=== PATIENT | male | born 1950 | race Caucasian/White ===

== ENCOUNTER 2016-09-18 11:52 | Observation (INO) | payer OTHER, MEDICARE ==
[~2016-09-18] VITALS: Ht 185.4 cm; Wt 91.6 kg
[~2016-09-18 11:52] MED LIST: ASPIRIN EC81 M1 PO; ATORVASTATIN CA20 M1 PO; CARVEDILOL3.125 M1 PO; LEVAQUIN500 M1 PO; MAGNESIUM400 M1 PO; MEDROL4 M2 PO; MELOXICAM15 M1 PO; MOBIC15 MG PO; NASONEX17 GM NASB; ORPHENADRINE C100 MG PO; SOTALOL80 M1 PO; TESSALON PERLE100 M1 PO; TESSALON PERLE100 MG PO; ULTRAM50 M1 PO; VENTOLIN HFA18 GM INH; ZITHROMAX Z-PA250 M1 PO; ZITHROMAX250 M2 PO
--- NOTE | 2016-09-18 12:19 | NUR ---
RECEIVED 66 YO MALE C/O FEELING VERY SWEATY AND DIZZY SINCE LAST NIGHT. PT WAS AT [facility] THIS AM AND HE STARTED PROFUSELY SWEATING. PT ALSO REPORTS SHORTNESS OF BREATH. NO C/O CP.
--- NOTE | 2016-09-18 12:19 | NUR ---
PT REPORTS NEAR SYNCOPE EPISODE AT [facility].
--- NOTE | 2016-09-18 12:22 | ED AMS/SEIZURE/WEAK/DIZZY ---
History of Present Illness General Chief Complaint: Dizziness Stated Complaint: DIZZY, X 1 DAY Source: patient Exam Limitations: no limitations Vital Signs & Intake/Output Vital Signs & Intake/Output Vital Signs Date Time Temp Pulse Resp B/P Pulse O2 O2 Flow FiO2 Ox Delivery Rate 09/19 0927 124/64 09/19 0800 97.5 74 18 124/64 97 Room Air 09/18 2200 98.2 74 16 120/68 98 Room Air 09/18 2125 80 120/68 09/18 1710 97.6 77 20 112/60 96 Room Air ED Intake and Output 09/19 0000 09/18 1200 Intake Total 1060 Output Total Balance 1060 Intake, IV 610 Intake, Oral 450 Number 0 Bowel Movements Patient 202 lb Weight Allergies Coded Allergies: Penicillins (Intermediate, HIVES 04/08/16) codeine (Intermediate, HIVES 04/08/16) Reconcile Medications Aspirin (Ecotrin*) 81 MG TABLET.DR 1 TAB PO DAILY HEART/BLOOD (Reported) Atorvastatin Calcium 20 MG TABLET 1 TAB PO DAILY CHOLESTEROL (Reported) Carvedilol 3.125 MG TABLET 1 TAB PO BID HEART (Reported) Magnesium Oxide (Magnesium) 400 MG CAPSULE 1 CAP PO DAILY SUPPLEMENT ( Reported) Meloxicam 15 MG TABLET 1 TAB PO DAILY PAIN/INFLAMMATION (Reported) Sotalol HCl (Sotalol) 80 MG TABLET 1 TAB PO BID HEART (Reported) Triage Note: RECEIVED 66 YO MALE C/O FEELING VERY SWEATY AND DIZZY SINCE LAST NIGHT. PT WAS AT [facility] THIS AM AND HE STARTED PROFUSELY SWEATING. PT ALSO REPORTS SHORTNESS OF BREATH. NO C/O CP. Triage Nurses Notes Reviewed? yes Onset: Abrupt Duration: hour(s): (1) Timing: single episode today Injury Environment: AT [facility] Severity: severe No Modifying Factors: none Associated Symptoms: DIAPHORESIS, URINARY FREQUENCY HPI: This is a very pleasant 66-year-old gentleman with history of permanent pacemaker placed in 2000 for bradycardia who presents to the ER with his for chief complaint of feeling like he was going to pass out at [facility]. Patient states today while he was at [facility] all of a sudden became very diaphoretic and felt dizzy like he was going to pass out. He asked someone for a place to lie down and felt slightly better. Last night throughout the night he had multiple episodes of severe diaphoresis as well as was urinating very frequently. Denies any chest pain or palpitations. He states that if he did not change his position in [facility] he would've passed out. Last episode of syncope was 2 years ago after which the patient was taken to [facility]. From [place] she was transferred to [place] and had testing done that showed that the lower chambers of his heart or only pumping at 20-25%. He follows up with Dr. Kirby Bellamy electrophysiology. He is currently on sotalol Alyce states that his medications have not changed. He is compliant with his medications. Last interrogation of his pacemaker was in April 2016. Neither any other recent changes. He states he is feeling better than he was at the [facility] earlier. Past History Travel History Traveled to [facility] past 21 day No Medical History Any Pertinent Medical History? 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 No Review of Systems Review of Systems Constitutional: Reports: diaphoresis, weakness. Denies: chills, fever. EENTM: Reports: no symptoms. Respiratory: Denies: cough, short of breath, sputum production. Cardiovascular: Reports: syncope (NEAR SYNCOPE). Denies: chest pain, palpitations, peripheral edema. GI: Reports: no symptoms. Genitourinary: Reports: frequency. Musculoskeletal: Denies: back pain. Skin: Reports: no symptoms. Neurological/Psychological: Reports: no symptoms. Hematologic/Endocrine: Reports: polyuria. Denies: bruising, bleeding, polydipsia. Immunologic/Allergic: Denies: splenectomy. All Other Systems: Reviewed and Negative Physical Exam Physical Exam General Appearance: alert, awake, moderate distress, PALE Head: atraumatic, normal appearance Eyes: Bilateral: normal appearance, PERRL, EOMI. Ears, Nose, Throat: normal pharynx, normal ENT inspection, hearing grossly normal Neck: normal inspection, supple, full range of motion Respiratory: normal breath sounds, chest non-tender, no respiratory distress Cardiovascular: regular rate/rhythm Peripheral Pulses: 2+ radial (R), 2+ radial (L) Gastrointestinal: normal bowel sounds, soft, non-tender Extremities: normal range of motion Neurologic/Psych: no motor/sensory deficits, awake, alert, oriented x 3 Skin: pallor Core Measures ACS in differential dx? Yes ASA ordered for poss ACS? 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 CVA/TIA Diagnosis: No Severe Sepsis Present: No Septic Shock Present: No Progress Differential Diagnosis: arrythmia, anemia, benign positional vertigo, CVA/stroke , dehydration, electrolyte imbalance, UNSTABLE ANGINA Plan of Care: Orders Procedure Date/time Status ECHOCARDIOGRAM 09/19 0700 Active TROPONIN LEVEL 09/19 0000 Complete EKG 09/19 0000 Active House Staff 09/19 UNK Active Heart Healthy Diet 09/18 D Active TROPONIN LEVEL 09/18 1800 Complete EKG 09/18 1800 Active Pathway - chart 09/18 1711 Active Vital Signs 09/18 1657 Active Teach/Educate 09/18 165 Active Pain Treatment and Response 09/18 165 Active Nutritional Intake, Monitor 09/18 165 Active Isolation 09/18 1657 Active Intake & Output 09/18 1657 Active Patient Care Conference 09/18 1657 Active Activity/Ambulation 09/18 1657 Active Patient Data 09/[address] in observation 09/18 1446 Active Vital Signs 09/18 1446 Active Code Status 09/18 1446 Active Intake & Output 09/18 1259 Active GLYCOSYLATED HGB 09/18 1210 Complete D-DIMER 09/18 1210 Complete House Staff 09/18 K Active Lab Add-on Test 09/18 K Active Current Medications Sig/Shi Start time Last Medication Dose Stop Time Status Admin Enoxaparin Sodium 40 MG DAILY 09/18 1711 AC (Lovenox) Laboratory Tests 09/19/16 0100: Troponin I < 0.01 09/18/16 1930: Urine Color YEL, Urine Clarity CLEAR, Urine pH 6.0, Ur Specific [place] 1.025, Urine Protein NEG, Urine Ketones NEG, Urine Nitrite NEG, Urine Bilirubin NEG, Urine Urobilinogen 0.2, Ur Leukocyte Esterase NEG, Ur Microscopic EXAM NOT REQUIRED, Urine Hemoglobin NEG, Urine Glucose NEG 09/18/16 1800: Troponin I < 0.01 EKG, TELE MONITOR, ORTHOSTATICS. LABS, URINALYSIS ORDERED. NEURO INTACT, CURRENTLY ASYMPTOMATIC. 2:04 PM D/W ON-CALL PHYSICIAN COVERING DR BELLAMY. ADVISES TELEMETRY ADMISSION AND PACER INTERROGATION. DR ILENE GA. D/W CASE MANAGEMENT FOR OBSERVATION. (LAMBERTO MORIN,NEAL) Diagnostic Imaging: Viewed by Me: Radiology Read. Discussed w/RAD: Radiology Read. Initial ED EKG: PACED Prior EKG: unchanged Comments: PATIENT: ASYA TELLES PRESENT AGE: 66 PATIENT ACCOUNT NO: [id number] : 50 LOCATION: [facility] ORDERING PHYSICIAN: NEAL ORANTES MD SERVICE DATE: 09/18/16 EXAM TYPE: RAD - XRY-CHEST XRAY, PA AND LATERAL EXAMINATION: XR CHEST CLINICAL INFORMATION: Syncope. Evaluate mediastinum. COMPARISON: Chest done on 03/15/2016. TECHNIQUE: 2 views of the chest were obtained. FINDINGS: The cardiomediastinal silhouette is within normal limits, appears similar to 03/15/2016. Dual-lead pacer wires are present, appear intact, unchanged. Both lung wray are symmetrically expanded and appear clear. There is no pleural effusion present. The visualized upper abdomen is unremarkable. Overall, no significant change since prior study. IMPRESSION: No acute cardiopulmonary disease. No significant change since 03/15/2016. Specifically, the mediastinal contour is well-maintained, unchanged. DICTATED BY: HAYLEY AGUILAR MD DATE/TIME DICTATED:09/18/161341 SCREENER AND BLENDER:VERONICA DATE/TIME TRANSCRIBED:09/18/161341 CONFIDENTIAL, DO NOT COPY WITHOUT APPROPRIATE AUTHORIZATION. <Electronically signed in Other Vendor System> SIGNED BY: HAYLEY AGUILAR MD 09/18/16 1346 Departure Departure Disposition: STILL A PATIENT Condition: Stable Clinical Impression Primary Impression: Near syncope Referrals: CHERELLE ODOM MD (PCP/Family) Departure Forms: Customer Survey General Discharge Information Observation Note Spoke With: CHERELLE ODOM MD Physician Advisor Notified: LIZ MORIN,SILVIA [address] Place Patient In: Non-ED OBS Care Area Rationale for Observation: My rational for observation is as follows [TELE MONITOR, SERIAL EKG/TROPONIN, PACEMAKER INTERROGATION, ECHOCARDIOGRAM, CARDIOLOGY CONSULTATION].
[2016-09-18 12:27] LABS: ABSOLUTE BASOPHIL COUNT 0 /CUMM (0.0-0.2); ABSOLUTE EOSINOPHIL COUNT 0.1 /CUMM (0.0-0.7); ABSOLUTE GRANULOCYTE CT 4.4 /CUMM (1.4-6.5); ABSOLUTE LYMPH COUNT 1.2 /CUMM (1.2-3.4); ABSOLUTE MONOCYTE COUNT 0.4 /CUMM (0.10-0.60); BASOPHIL % 0.5 % (0.0-2.0); EOSINOPHIL % 0.9 % (0-5); GRANULOCYTE % 71.6 % (42.2-75.2); HEMATOCRIT 45.2 % (42-52); MEAN CORPUSCULAR HGB 30.3 PG (27.0-31.0); MEAN CORPUSCULAR HGB CONC 33.7 G/DL (33.0-37.0); MEAN CORPUSCULAR VOLUME 90.1 FL (80.0-94.0); MEAN PLATELET VOLUME 8.3 FL (7.4-10.4); PLATELET COUNT 197 /CUMM (130-400); RBC DISTRIBUTION WIDTH 14.3 % (11.5-14.5); RED BLOOD CELL CT 5.02 /CUMM (4.70-6.10); WHITE BLOOD CELL COUNT 6.2 /CUMM (4.8-10.8)
--- NOTE | 2016-09-18 12:27 | NUR ---
PT BOUGHT DIRECTLY TO ROOM # 6, CONNECTED TO CM AND ENDORSED TO RN
[2016-09-18 12:28] LABS: PT 10.8 SEC (9.4-12.5); PTT 26 SEC (25-37)
--- NOTE | 2016-09-18 12:58 | NUR ---
EXMAINED BY DR. ORANTES, DENIES CHEST PAIN. TO AND FROM XRAY.
--- NOTE | 2016-09-18 13:10 | NUR ---
C/O R SIDED FRONTAL HEADACHE.
--- NOTE | 2016-09-18 13:46 | RADIOLOGY REPORT ---
EXAMINATION: XR CHEST CLINICAL INFORMATION: Syncope. Evaluate mediastinum. COMPARISON: Chest done on 03/15/2016. TECHNIQUE: 2 views of the chest were obtained. FINDINGS: The cardiomediastinal silhouette is within normal limits, appears similar to 03/15/2016. Dual-lead pacer wires are present, appear intact, unchanged. Both lung wray are symmetrically expanded and appear clear. There is no pleural effusion present. The visualized upper abdomen is unremarkable. Overall, no significant change since prior study. IMPRESSION: No acute cardiopulmonary disease. No significant change since 03/15/2016. Specifically, the mediastinal contour is well-maintained, unchanged.
--- NOTE | 2016-09-18 13:57 | NUR ---
IV TYLENOL INFUSING DIRECTED
--- NOTE | 2016-09-18 13:57 | NUR ---
PT RETURNED FROM RADIOLOGY
--- NOTE | 2016-09-18 14:48 | NUR ---
multiple calls placed to md zazueta
--- NOTE | 2016-09-18 15:26 | History & Physical ---
SONIA ENCARNACION MD 09/18/16 1519: General Information and HPI MD Statement: I have seen and personally examined ASYA TELLES and documented this H&P. The patient is a 66 year old M who presented with a patient stated chief complaint of []. 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 According to him, he was relatively alright a day ago. He went for a long ride with his on Monday. He came back on Monday night and slept well. During Monday afternoon. He has an episode of sudden onset of sweating without any associated symptoms with subsided with in couple of minutes. In night again he had this similar episode of sweating when he was trying to go for urination which he recovered after some time. He was having associated shortness of breath at this time. She slept well overnight in the morning he went to [facility] where he found himself very weak, associated with severe sweating, shortness of breath and tendency to fall, but he denies for any fall or trauma. He was aware of her situation. His was there and she told that his skin was pale. After this episode, the came to the [place] ED., This episode lasted for around 15-20 minutes. He denies palpitation, incontinence of stool and urine, blurry vision, confusion, seizure, weakness in any part of the body, tingling and numbness, chest pain, neck pain, trauma, history of diabetes. He was also complaining of headache. He was given Tylenol in the ED. He had permanent pacemaker in 2000 secondary to tachybradycardia syndrome.Its battery was changed in 2009.Last interrogation of his pacemaker was in April 2016. He is currently on sotalol and carvedilol.He is compliant with his medications. 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 He is also complaining of tremors in his both hands. Tremors are more intentional in nature. He is unawair of any family history. 2 weeks ago, he had steroid injection in left hip for the pain. Allergies -penicillin, codeine Allergies/Medications Allergies: Coded Allergies: Penicillins (Intermediate, HIVES 04/08/16) codeine (Intermediate, HIVES 04/08/16) Home Med list Aspirin (Ecotrin*) 81 MG TABLET.DR 1 TAB PO DAILY HEART/BLOOD (Reported) Atorvastatin Calcium 20 MG TABLET 1 TAB PO DAILY CHOLESTEROL (Reported) Carvedilol 3.125 MG TABLET 1 TAB PO BID HEART (Reported) Magnesium Oxide (Magnesium) 400 MG CAPSULE 1 CAP PO DAILY SUPPLEMENT ( Reported) Meloxicam 15 MG TABLET 1 TAB PO DAILY PAIN/INFLAMMATION (Reported) Sotalol HCl (Sotalol) 80 MG TABLET 1 TAB PO BID HEART (Reported) Past History Travel History Traveled to [place] past 21 day No Medical History Neurological: NONE EENT: NONE Cardiovascular: hypertension, hyperlipidemia, PACEMAKER Respiratory: NONE Gastrointestinal: NONE Hepatic: NONE Renal: NONE Musculoskeletal: NONE Psychiatric: NONE Endocrine: NONE Blood Disorders: NONE Cancer(s): NONE [employer] ARCHITECT/Reproductive: NONE Review of Systems Review of Systems Constitutional: Denies: no symptoms. Comments He denies for any active complaints other than episodic perspiration. Exam & Diagnostic Data Last 24 Hrs of Vital Signs/I&O Vital Signs Date Time Temp Pulse Resp B/P Pulse O2 O2 Flow FiO2 Ox Delivery Rate 09/18 2200 98.2 74 16 120/68 98 Room Air 09/18 2125 80 120/68 09/18 1710 97.6 77 20 112/60 96 Room Air 09/18 1356 97.4 09/18 1216 97.4 71 20 106/72 96 Room Air Intake & Output 09/19 0800 09/19 0000 09/18 1600 Intake Total 450 610 Output Total Balance 450 610 Intake, IV 0 610 Intake, Oral 450 Number 0 Bowel Movements Patient 91.626 kg 91.626 kg Weight Physical Exam General Appearance Alert, Oriented X3, Cooperative, No Acute Distress Skin No Rashes, No Breakdown Cardiovascular Normal S1, Normal S2 Lungs Clear to Auscultation, Normal Air Movement Abdomen Soft, No Tenderness Neurological Normal Gait, Normal Speech, Strength at 5/5 X4 Ext, Normal Tone, Sensation Intact, Cranial Nerves 3-12 NL, Reflexes 2+ Extremities No Clubbing, No Cyanosis, No Edema, decreased pulse on the right side of hand Last 24 Hrs of Labs/Alexys: Laboratory Tests 09/18/16 1930: Urine Color YEL, Urine Clarity CLEAR, Urine pH 6.0, Ur Specific [place] 1.025, Urine Protein NEG, Urine Ketones NEG, Urine Nitrite NEG, Urine Bilirubin NEG, Urine Urobilinogen 0.2, Ur Leukocyte Esterase NEG, Ur Microscopic EXAM NOT REQUIRED, Urine Hemoglobin NEG, Urine Glucose NEG 09/18/16 1800: Troponin I < 0.01 09/18/16 1210: Anion Gap 11, Estimated GFR > 60, BUN/Creatinine Ratio 21.0, Glucose 110 H, Hemoglobin A1c Pending, Calcium 9.9, Magnesium 2.1, Total Bilirubin 1.0, AST 35, ALT 58, Alkaline Phosphatase 61, Troponin I < 0.01, [id number]-F-[id number] Pept 289 H, Total Protein 7.3, Albumin 4.0, Globulin 3.3, Albumin/Globulin Ratio 1.2, PT 10.8, INR 1.03, APTT 26, D-Dimer < 200, CBC w Diff NO MAN DIFF REQ, RBC 5.02, MCV 90.1, MCH 30.3, RDW 14.3, MPV 8.3, Gran % 71.6, Lymphocytes % 20.1 L, Monocytes % 6.9, Eosinophils % 0.9, Basophils % 0.5, Absolute Granulocytes 4.4, Absolute Lymphocytes 1.2, Absolute Monocytes 0.4, Absolute Eosinophils 0.1, Absolute Basophils 0, PUBS MCHC 33.7 Diagnostic Data EKG Results Normal sinus rhythm, atrial pacing CXR Results No any acute cardiopulmonary abnormality Assessment/Plan Assessment: Patient is a 66-year-old male with significant past medical history of hypertension, hyperlipidemia, status post pacemaker 2000( due to tachybradycardia syndrome), diverticulosis, internal hemorrhoids, essential tremors, history of fracture of right elbow presented with chief complaints of episode of feeling sweaty and dizzy and shortness of breath. Vital signs at the time of admission -temperature 97.4, pulse 71, respiratory rate 20, blood pressure 106/72, SPO2 96% on room air Orthostatic blood pressure - blood pressure in sitting 130/84, lying 136/76, standing 126/82. CXR no any acute cardiopulmonary abnormality Pertinent labs -troponin <0.01, d-dimer<200, proBNP-289 Plan - Syncope under evaluation - We will admit the patient in telemetry Will do cardiac monitoring We will place cardiology consult and follow the recommendation We will follow-up with echocardiogram We will follow serial troponin and EKG to rule out acute coronary syndrome. We will also interrogate the pacemaker. If it had captured any events. Strict intake output charting We will continue all home medications including sotalol and carvedilol Diet-heart healthy diet DVT prophylaxis-ALP S/heparin CODE STATUS-full code As Ranked By This Provider Problem List: 1. Syncope 2. History of permanent cardiac pacemaker placement 3. Hyperlipidemia 4. Hypertension Core Measures/Miscellaneous Acute Coronary Syndrome ACS Diagnosis: No Cerebrovascular Accident CVA/TIA Diagnosis: No Venous Thromboembolism VTE Risk Factors: Age > 40 No [facility] VTE prophylaxis d/t: No contraindications No VTE Pharm Prophylaxis d/t: No contraindications VTE Diagnosis: No VTE Type: NONE VTE Confirmed by (Test): NONE Severe Sepsis Severe Sepsis Present: No Septic Shock Septic Shock Present: No Miscellaneous Documentation Attending Case Discussed With: CHERELLE ODOM MD Primary Care Physician: CHERELLE ODOM MD Level of Patient Care: Telemetry JANENE AVINA MD 09/18/161937: Past History Surgical History Surgical History: Pacemaker placement Core Measures/Miscellaneous Congestive Heart Failure CHF Diagnosis: No Miscellaneous Documentation Patient sees these Specialists Dr. Hernandez Cardiology Resident Review Statement Resident Statement: examined this patient, discussed with art gallery internship, agreed with art gallery internship Other Findings: Mr. 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 He presented with multiple episodes of near syncope characterized by severe diaphoresis, skin palor, lightheadedness and frequent urination. The episodes lasted throughout last night with the last episode occuring at [facility] this morning. The episodes last for 15 minutes with no preceding aura. He denied chest pain or palpitations during the events. He also denied headache, loss of consciousness, seizures, weakness or slurring of speech. Of note he states that he follows Dr. Hernandez for both general cardiology and electrophysiology. He saw him for a pacemaker check in April 2016 and was given an all clear. Vital signs at the time of admission -temperature 97.4, pulse 71, respiratory rate 20, blood pressure 106/72, SPO2 96% on room air Orthostatic blood pressure negative- blood pressure in sitting 130/84, lying 136 /76, standing 126/82. 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 No murmurs, bruits, or JVDs. Pacemaker noted in left upper chest Pulmonary: CTA, symmetrical chest expansion GI: abdomen soft, non-tender; bowel sounds present and normoactive MSK: no pain over left hip, ROM of LUE limited (unable to fully supinate). No swelling or pain in calves Skin: no rashes or skin tears Vascular: All distal pulses palpable, although radial pulse in RUE difficult to locate Imaging CXR in ED showed no any acute cardiopulmonary abnormality Significant Labs in the ER. Troponin <0.01, D-Dimer <200. Pro BNP 289. Creat 1.0 Assessment 1. Near syncope ? vasovagal vs arrhythmia 2. Rule out ACS 3. History of AV curt reentrant tachycardia s/p pacemaker 4. Hypertension 5. Hyperlipidemia Plan * Admit for telemetry observation * Serial troponin and EKG X3 * cardiology consult for evaluation * Repeat ECHO to see if cardiac function is worsening since last echo done in 04/19/2016 showed EF of 35% * Interrogate pacemaker to assess for pacemaker malfunction * D-dimer was negative and PE is unlikely * Continue sotalol and coreg * monitor respiratory status * Add on Hba1c * DVT prophylaxis with SC lovenox 40 mg daily * Patient is full code Patient plan discussed with attending Dr. Caesar ODOM MD,[facility] 09/19/16 0911: Attending Review Statement Attending Statement Attending MD Statement: examined this patient, discuss w/resident/PA/PERFORMANCE TESTER, agreed w/resident/PA/PERFORMANCE TESTER, reviewed EMR data (avail)
--- NOTE | 2016-09-18 15:49 | NUR ---
PT HAS A BED 179-42
--- NOTE | 2016-09-18 15:51 | NUR ---
HOUSE STAFF HERE TO EVALUATE. EATING DINNER.
--- NOTE | 2016-09-18 16:13 | NUR ---
REPORT TO FLOOR. (DOV DOUGLAS).
[2016-09-18 17:10] VITALS: BP 112/60
--- NOTE | 2016-09-18 17:30 | PN- Student ---
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 Coreas is a 66yo M who presented to the ED today, 09/18/16, following an episode of diaphoresis, dizziness, and SOB. The patient experienced a similar episode overnight, associated with frequent urination. This had resolved by this morning and the patient was able to perform his hygiene practices without issue. Upon going to shinto, the patient began to experience the same symptoms, but this time with a sensation of near fainting. He left the building, sat down outside, had some water and started to feel a little better. His brought him to the ED at that point. In the ED, his symptoms began to resolve, but he developed a headache, which subsided after treatment. Orthostatic measurements were negative. CXR was normal and unchanged compared to recent CXR. The patient denies any vision changes, syncopal episodes, palpitations, chest pain, recent illness, diarrhea, vomiting, edema, rashes, allergic reactions, and difficulty urinating. Of note, the patient recently had a long car ride to and from [place] with noted BLE swelling after the trip. He consumed fish twice over the weekend without any s/s of allergic reaction. PMH: significant for bradycardia s/p pacemaker placement (2000), syncope (last episode in 2014), HTN, HLD, sigmoid diverticulosis, internal hemorrhoids, arthritis of left hip treated with corticosteroid injections, left elbow dislocation, tremors (medical records need to be obtained for this), sterile ECHO in 2014: EF 20-25% ECHO in 04/2016: mild concentric LV hypertrophy, mild-moderate decrease in LV systolic function with EF 35-40%, stage 1 diastolic dysfunction, trace pulmonic regurgitation PSH: significant for pacemaker placement (2000), pacemaker battery update (2009) , colonoscopy 05/2016 Allergies: PCN, codeine (hives) Home Medications: ASA 81 mg daily, Carvedilol 3.125 mg BID, Magnesium Oxide 400mg daily, Meloxicam 15 mg daily, Sotalol 80mg BID Social: lives at home with his , no children of his own. Never smoked. Chewing tobacco use x38 years (current: 1 can/week; at heaviest use: 5 cans/week ). Drinks a few beers or some wine on some weekends only. 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 Family History: mother - heart disease, HLD. Brother - HLD. Unsure of detailed family history as is not close with his family ROS: General: weakness with episodes. Otherwise denies Neuro: Denies confusion, altered mental status, focal deficits, and change in cognition level HEENT: Denies trauma, vision changes, hearing loss, nasal congestion, and sore throat. Neck: Denies trauma, stiffness, and lymphadenopathy CV: Negative, except as HPI/PMH Pulmonary: Denies cough or difficulty breathing GI: Significant for decreased appetite and anorexia : Negative except as HPI MSK: recent steroid injection for left hip; limited ROM of LUE Skin: Denies changes, rash, or wounds Objective Objective: Phyiscal Exam: Vitals: * Temp: 97.6 oral * HR: 77bpm * RR: 20 * SpO2: 96% RA * BP: 112/60 General: Comfortable, resting on stretcher Neuro: A&O x4; tremors noted in BUE (L > R) HEENT: CN grossly intact, EOMI, moist oral mucosa, no nasal discharge Neck: full ROM intact, no lymphadenopathy CV: S1, S2, regular rate; pacing 100% per classroom monitor. No murmurs, bruits, or JVDs. Pacemaker noted in left upper chest Pulmonary: CTA, symmetrical chest expansion GI: abdomen soft, non-tender; bowel sounds present and normoactive MSK: no pain over left hip, ROM of LUE limited (unable to fully supinate). No swelling or pain in calves Skin: no rashes or skin tears Vascular: All distal pulses palpable, although radial pulse in RUE difficult to locate Psych: Pleasant, cooperative, normal mood and affect. Results Results: Laboratory Tests 09/18/16 1210: Glucose 110 H, Calcium 9.9, Magnesium 2.1 Troponin I < 0.01, [id number]-Hrmadlndsot Pept 289 H PT 10.8, INR 1.03, APTT 26, D-Dimer < 200 Assessment/Plan Assessment: Mr. Coreas is a 66yo M with a near syncopal episode. Plan: Near Syncope: * admit for telemetry observation * Serial troponin * cardiology consult * repeat ECHO to see if worsening since 04/2016 * Interrogate pacemaker to assess for pacemaker malfunction Rule out PE: Less convincing differential due to resolving, episodic nature * check D-dimer. If positive, consider V/Q scan * monitor respiratory status Underlying heart condition * restart home medications Code status discussed with the patient - he wishes to be a full code at this time.
[2016-09-18 22:00] VITALS: BP 120/68
[2016-09-19 08:00] VITALS: BP 124/64
--- NOTE | 2016-09-19 09:06 | Admission Certification ---
Admission Certification Certification Statement - As attending physician, I certify that at the time of - admission, based on clinical presentation, severity of - symptoms, need for further diagnostic testing and - therapeutic interventions, and risk of adverse outcomes - without in-hospital treatment, in my clinical assessment, - this patient requires an acute hospital stay for a minimum - of two nights or longer. I have also considered psychsocial - factors such as support system, advanced age, financial - issues, cognitive issues, and failed out-patient treatments, - past re-admission history, safety of patient, and lack of - compliance as applicable. Specific rationale supporting this admission is: Presyncope
--- NOTE | 2016-09-19 09:11 | PN- Att Addend ---
Attending Addendum Attending Brief Note Patient has no complaints on evaluation this morning. He has not had a repeat episode of sweating since being in the hospital. General Appearance: Alert, No Acute Distress Skin: Grossly normal HEENT: PEERLA Neck: Supple, No JVD Cardiovascular: Regular Rate, Normal S1, Normal S2, No Murmurs Lungs: Clear to Auscultation, Normal Air Movement Abdomen: Normal Bowel Sounds, Soft, No Tenderness Neurological: Normal Speech, Strength at 5/5 X4 Ext, Cranial Nerves 3-12 NL, Reflexes 2+ Extremities: No Clubbing, No Cyanosis, No Edema Vascular: Normal Pulses Assessment 66-year-old with history of hypertension, dyslipidemia, status post pacemaker placement with recent interrogation in normal 2016, history of essential tremors that is chronic and erectile dysfunction for which he is currently under investigation with Dr. ruiz, with high prolactin levels awaiting for pituitary scan presents with episodes of sweating and increased urination. By history sweating came first and was later accompanied by dizziness. Symptoms does not completely appear cardiac however we can't easily interrogate his pacemaker and confirm it. So for his troponins have remained negative and no EKG changes. We will get an inpatient echocardiogram and also continue to monitor on telemetry. Orthostatics on admission negative. Plan Pacemaker interrogation Cardiogram Repeat orthostatics Continue other home meds DVT prophylaxis Current Medications Sig/Shi Start time Last Medication Dose Route Stop Time Status Admin Acetaminophen 1,000 MG ONCE ONE 09/19 0145 DC 09/19 N/A 1 UNIT IV 09/19 0159 0200 Acetaminophen 1,000 MG ONCE ONE 09/18 1400 DC 09/18 N/A 1 UNIT IV 09/18 1414 1356 Acetaminophen 0 .STK-MED ONE 09/18 1355 DC IV Aspirin Buffered 81 MG DAILY 09/19 1000 AC PO Atorvastatin Calcium 20 MG DAILY 09/19 1000 AC PO Carvedilol 3.125 MG BID 09/18 2200 AC 09/18 PO 2125 Enoxaparin Sodium 40 MG DAILY 09/18 1711 AC SC Ibuprofen 400 MG TID 09/18 2200 AC PO Magnesium Oxide 400 MG DAILY 09/19 1000 AC PO Patient Medication 1 UNIT ONE NR 09/18 1730 DC Teaching ED 09/18 1800 Patient Medication 1 UNIT ONE NR 09/18 1630 MT Teaching ED 09/18 1700 Patient Medication 1 UNIT ONE NR 09/18 1630 DC Teaching ED 09/18 1700 Sodium Chloride 500 ML BOLUS ONE 09/18 1400 DC 09/18 IV 09/18 1459 1356 Sotalol HCl 80 MG BID 09/18 2200 AC 09/18 PO 2125 Laboratory Tests 09/19 09/18 09/18 0100 1930 1800 Chemistry Troponin I (<0.11 ng/ml) < 0.01 < 0.01 Urines Urine Color (YEL,AMB,STR) YEL Urine Clarity (CLEAR) CLEAR Urine pH (5.0 - 8.0) 6.0 Ur Specific [place] (1.001 - 1.035) 1.025 Urine Protein (NEG,<30 MG/DL) NEG Urine Ketones (NEG) NEG Urine Nitrite (NEG) NEG Urine Bilirubin (NEG) NEG Urine Urobilinogen (0.1 - 1.0 EU/dl) 0.2 Ur Leukocyte Esterase (NEG) NEG Ur Microscopic EXAM NOT REQUIRED Urine Hemoglobin (NEG) NEG Urine Glucose (N MG/DL) NEG 09/18 1210 Chemistry Sodium (137 - 145 mmol/L) 141 Potassium (3.5 - 5.1 mmol/L) 4.3 Chloride (98 - 107 mmol/L) 104 Carbon Dioxide (22 - 30 mmol/L) 26 Anion Gap (5 - 16) 11 BUN (9 - 20 mg/dL) 21 H Creatinine (0.7 - 1.2 mg/dL) 1.0 Estimated GFR (>60 ml/min) > 60 BUN/Creatinine Ratio (7 - 25 %) 21.0 Glucose (65 - 99 mg/dL) 110 H Hemoglobin A1c (4.2 - 5.8 %) Pending Calcium (8.4 - 10.2 mg/dL) 9.9 Magnesium (1.6 - 2.3 mg/dL) 2.1 Total Bilirubin (0.2 - 1.3 mg/dL) 1.0 AST (17 - 59 U/L) 35 ALT (21 - 72 U/L) 58 Alkaline Phosphatase (< 127 U/L) 61 Troponin I (<0.11 ng/ml) < 0.01 [id number]-Vupeoosfmau Pept (<125 pg/mL) 289 H Total Protein (6.3 - 8.2 g/dL) 7.3 Albumin (3.5 - 5.0 g/dL) 4.0 Globulin (1.9 - 4.2 gm/dL) 3.3 Albumin/Globulin Ratio (1.1 - 2.2 %) 1.2 Coagulation PT (9.4 - 12.5 SEC) 10.8 INR (0.90 - 1.17) 1.03 APTT (25 - 37 SEC) 26 D-Dimer (70 - 232 ng/ml) < 200 Hematology CBC w Diff NO MAN DIFF REQ WBC (4.8 - 10.8 /CUMM) 6.2 RBC (4.70 - 6.10 /CUMM) 5.02 Hgb (14.0 - 18.0 G/DL) 15.2 Hct (42 - 52 %) 45.2 MCV (80.0 - 94.0 FL) 90.1 MCH (27.0 - 31.0 PG) 30.3 RDW (11.5 - 14.5 %) 14.3 Plt Count (130 - 400 /CUMM) 197 MPV (7.4 - 10.4 FL) 8.3 Gran % (42.2 - 75.2 %) 71.6 Lymphocytes % (20.5 - 51.1 %) 20.1 L Monocytes % (1.7 - 9.3 %) 6.9 Eosinophils % (0 - 5 %) 0.9 Basophils % (0.0 - 2.0 %) 0.5 Absolute Granulocytes (1.4 - 6.5 /CUMM) 4.4 Absolute Lymphocytes (1.2 - 3.4 /CUMM) 1.2 Absolute Monocytes (0.10 - 0.60 /CUMM) 0.4 Absolute Eosinophils (0.0 - 0.7 /CUMM) 0.1 Absolute Basophils (0.0 - 0.2 /CUMM) 0 PUBS MCHC (33.0 - 37.0 G/DL) 33.7 Vital Signs Date Time Temp Pulse Resp B/P Pulse O2 O2 Flow FiO2 Ox Delivery Rate 09/19 0800 97.5 74 18 124/64 97 Room Air 09/18 2200 98.2 74 16 120/68 98 Room Air 09/18 2125 80 120/68 09/18 1710 97.6 77 20 112/60 96 Room Air 09/18 1356 97.4 09/18 1216 97.4 71 20 106/72 96 Room Air
--- NOTE | 2016-09-19 09:26 | PN- Student ---
ANA TARIQ 09/19/16 0914: Subjective Subjective: Medical Student Daily Progress Note: Mr. Coreas is a 66yo M who was admitted on 09/18/16 from the ED for dizziness, profuse diaphoresis, and near syncope. This pt's PMH is significant for bradycardia s/p Pacemaker implantation, syncope (last episode 2014), HTN, HLD, sigmoid diverticulosis, small internal hemorrhoids, and arthritis. His most recent Echo (04/2016) showed mild concentric LV hypertrophy, mild- moderate decrease in LV systolic function w/ EF of 35-40%, stage 1 diastolic dysfunction, and trace pulmonic regurgitation. CXR on admission was negative, troponins were negative. Overnight, the patient reports he developed a headache over his right eye, which was relieved with analgesics. He has urinated 2-3 times overnight. He complains of difficulty sleeping, but otherwise reports he feels better. He states he did not have any new episodes overnight. Objective Objective: Physical Exam: Vitals: * Temp: 97.5 oral * HR: 74, 100% pacing per telemtry, occasional PVCs * RR: 18 * SpO2: 97% on RA * BP: 124/64 General: comfortable, resting in bed Neuro: A&Ox4, cranial nerves grossly intact. Tremor noted in BUE, L>R. HEENT: no conjunctival pallor or scleral icterus, no nasal discharge, moist oral mucosa Neck: Supple without adenopathy CV: S1,S2; 100% paced at 74bpm; RRR Pulmonary: CTA, symmetrical chest wall expansion GI: soft. Tenderness to light palpation noted over RUQ, greatest intensity below costal margin. Del Rio's sign positive Vascular: all distal pulses palpable, RUE radial pulse more faint than LUE. MSK: limited ROM on LUE (cannot fully supinate), no pain on palpation over Lt hip injection site Psych: calm, cooperative, appropriate mood and affect Results Results: Laboratory Tests 09/19/16 0100: Troponin I < 0.01 09/18/16 1210: Glucose 110 H, Hemoglobin A1c 5.7 Calcium 9.9, Magnesium 2.1 Total Bilirubin 1.0, AST 35, ALT 58 [id number] Pept 289 H PT 10.8, INR 1.03, APTT 26, D-Dimer < 200 Assessment/Plan Assessment: Mr. Coreas is a 66yo M with episodic diaphoresis and near syncope. Plan: Near Syncope: * Echo and compare to 04/2016 for worsening * telemetry to eval for further episodes * interrogate pacemaker to rule out malfunction * Consider Holter monitor when discharged * Obtain records from [facility] regarding cardiac history RUQ pain: * Del Rio's sign on exam this am, but re-examination post-BM did not elicit the same pain * If pain returns or becomes associated with eating, is colicky in nature, or is related to fatty foods, consider obtaining RUQ US to rule out cholecystitis or cholelithiasis Tremor: * pre-existing and patient already evaluated for this by Dr. Viveros * Obtain records relating to tremor to ascertain nature
--- NOTE | 2016-09-19 10:49 | PN- Housestaff ---
Subjective Follow-up For: Syncope and that evaluation Complaints: headache on the right frontal area Tele-Events Since Last Visit: Single pacing, premature ventricular complex, couplets, heart rate between 49-73 , no any overnight events Subjective: She was seen and examined at the bedside. He does not had any episodes overnight. He was complaining of headache on right side of the head Review of Systems Constitutional: Denies: no symptoms. Objective Last 24 Hrs of Vital Signs/I&O Vital Signs Date Time Temp Pulse Resp B/P Pulse O2 O2 Flow FiO2 Ox Delivery Rate 09/19 1556 97.7 73 20 124/82 96 Room Air 09/19 0927 124/64 09/19 08 97.5 74 18 124/64 97 Room Air 09/18 220 98.2 74 16 120/68 98 Room Air 09/18 2125 80 120/68 Intake & Output 09/19 1600 09/19 0809/19 0000 Intake Total 0 450 Output Total Balance 0 450 Intake, IV 0 0 Intake, Oral 0 450 Number 0 0 Bowel Movements Patient 91.626 kg Weight Physical Exam General Appearance: Alert, Oriented X3, Cooperative Skin: No Rashes, No Breakdown Cardiovascular: Normal S1, Normal S2 Lungs: Clear to Auscultation, Normal Air Movement Abdomen: Soft, No Tenderness Neurological: Normal Speech Extremities: No Clubbing, No Cyanosis, No Edema Vascular: Normal Pulses Current Medications: Current Medications Sig/Shi Start time Last Medication Dose Route Stop Time Status Admin Acetaminophen 1,000 MG ONCE ONE 09/19 0145 DC 09/19 N/A 1 UNIT IV 09/19 0159 0200 Aspirin Buffered 81 MG DAILY 09/19 999 AC 09/19 PO 926 Atorvastatin Calcium 20 MG DAILY 09/19 1000 AC 09/19 PO 926 Carvedilol 3.125 MG BID 09/18 2199 AC 09/19 PO 926 Enoxaparin Sodium 40 MG DAILY 09/18 1711 AC SC Ibuprofen 400 MG TID 09/18 2199 AC 09/19 PO 1630 Magnesium Oxide 400 MG DAILY 09/19 1000 AC 09/19 PO 926 Sotalol HCl 80 MG BID 09/18 2199 AC 09/19 PO 926 Last 24 Hrs of Lab/Alexys Results Last 24 Hrs of Labs/Mics: Laboratory Tests 09/19/16 0100: Troponin I < 0.01 09/18/16 1930: Urine Color YEL, Urine Clarity CLEAR, Urine pH 6.0, Ur Specific [place] 1.025, Urine Protein NEG, Urine Ketones NEG, Urine Nitrite NEG, Urine Bilirubin NEG, Urine Urobilinogen 0.2, Ur Leukocyte Esterase NEG, Ur Microscopic EXAM NOT REQUIRED, Urine Hemoglobin NEG, Urine Glucose NEG Assessment/Plan Assessment: Patient is a 66-year-old male with significant past medical history of hypertension, hyperlipidemia, status post pacemaker 2000( due to tachybradycardia syndrome), diverticulosis, internal hemorrhoids, essential tremors, history of fracture of right elbow presented with chief complaints of episode of feeling sweaty and dizzy and shortness of breath. plan - We are waiting for Dr. Kirby Hernandez electrophysiology/stone crusher operator to evaluate him and give opinion for further management. He is aware that patient is in hospital. If he is not able to evaluate than we will request Dr Ibarra for interrogation of pacemaker and help with further management. Syncope under evaluation - * We will continue telemetry * Will do cardiac monitoring, and watch for the arrhythmia * Echocardiogram -LVEF-35-40%, stage I diastolic dysfunction, LVH. * Serial troponins and EKGs are negative * We will follow cardiology recommendation * We will also interrogate the pacemaker, If it had captured any events. * Strict intake output charting * We will continue all home medications including sotalol and carvedilol Diet-heart healthy diet DVT prophylaxis-ALP S/heparin CODE STATUS-full code Problem List: 1. Hypertension 2. Hyperlipidemia 3. Near syncope Pain Ratin Pain Location: Right frontal headache Pain Goal: Remain pain free Pain Plan: [id number] Tomorrow's Labs & Rationales: Not required DVT/Prophylaxis: mechanical, pharmacological
[2016-09-19 15:56] VITALS: BP 124/82
--- NOTE | 2016-09-19 16:44 | ECHOCARDIOGRAM REPORT ---
ASYA TELLES Age: 66 : 1950 Gender: M Exam Date: 09/19/2016 12:33 Exam Location: [address] Ht (in): 73 Wt (lb): 202 BSA: 2.18 BP: 124 / 64 Ordering Physician: JANENE AVINA MD Referring Physician: JANENE AVINA MD Technologist: Amy Jang [facility] Room Number: 179-1 Indications: ARRHYTHMIAS Rhythm: Sinus Technical Quality: Technically difficult study, Poor FINDINGS Left Ventricle Normal size left ventricle. Mild to moderate concentric left ventricular hypertrophy. Mildly to moderately reduced global left ventricular systolic function. Mildly to moderately abnormal left ventricular ejection fraction estimated at 35-40%. Abnormal relaxation filling pattern of the left ventricle for age (stage 1 diastolic dysfunction). Right Ventricle Right ventricle not well visualized, grossly normal. Catheter/pacemaker wire in the right ventricular cavity. Right Atrium Normal right atrial size. Catheter/pacemaker wire in the right atrial cavity. Left Atrium Normal left atrial size. Mitral Valve Mitral valve mildly thickened. Trace mitral regurgitation. Aortic Valve Trileaflet aortic valve. Mild aortic sclerosis. No aortic valve stenosis or regurgitation. Tricuspid Valve Structurally normal tricuspid valve. Mild tricuspid regurgitation. No evidence of pulmonary hypertension. Right ventricular systolic pressure estimated to be within the normal range at 25 mmHg. Pulmonic Valve Pulmonic valve not well visualized. No pulmonic regurgitation. Pericardium No pericardial effusion. Great Vessels Normal size aortic root. CONCLUSIONS Normal size left ventricle. Mild to moderate concentric left ventricular hypertrophy. Mildly to moderately reduced global left ventricular systolic function. Mildly to moderately abnormal left ventricular ejection fraction estimated at 35-40%. Abnormal relaxation filling pattern of the left ventricle for age (stage 1 diastolic dysfunction). Right ventricle not well visualized, grossly normal. Catheter/pacemaker wire in the right ventricular cavity. Normal right atrial size. Catheter/pacemaker wires in the right heart. Trace mitral regurgitation. Mild tricuspid regurgitation. No evidence of pulmonary hypertension. Kirby Ibarra M.D. (Electronically Signed) Final Date: 19 September 2016 16:43 MEASUREMENTS (Male / Female) Normal Values 2D ECHO LV Diastolic Diameter PLAX 5.0 cm 4.2 - 5.9 / 3.9 - 5.3 cm LV Systolic Diameter PLAX 4.4 cm 2.1 - 4.0 cm LV Fractional Shortening PLAX 12.0 % 25 - 46 % LV Ejection Fraction 2D Teich 25.8 % IVS Diastolic Thickness 1.2 cm LVPW Diastolic Thickness 1.4 cm LV Relative Wall Thickness 0.5 LVOT Diameter 2.2 cm Aortic Root Diameter 3.5 cm LA Systolic Diameter LX 3.4 cm 3.0 - 4.0 / 2.7 - 3.8 cm LA Volume 52.0 cm 18 - 58 / 22 - 52 cm DOPPLER AV Peak Velocity 106.0 cm/s AV Peak Gradient 4.5 mmHg AV Mean Velocity 77.6 cm/s AV Mean Gradient 3.0 mmHg AV Velocity Time Integral 21.3 cm LVOT Peak Velocity 75.2 cm/s LVOT Peak Gradient 2.3 mmHg LVOT Mean Velocity 53.6 cm/s LVOT Mean Gradient 1.0 mmHg LVOT Velocity Time Integral 16.0 cm LVOT Stroke Volume 60.8 cm AV Area Cont Eq vti 2.9 cm AV Area Cont Eq pk 2.7 cm MV Peak Velocity 74.9 cm/s MV Peak Gradient 2.2 mmHg MV Mean Velocity 39.9 cm/s MV Mean Gradient 1.0 mmHg Mitral E Point Velocity 40.0 cm/s Mitral A Point Velocity 71.1 cm/s Mitral E to A Ratio 0.6 MV PHT Velocity 49.4 cm/s MV Deceleration [place] 57.7 cm/s MV Pressure Half Time 256.8 ms MV Area PHT 0.9 cm MV Deceleration Time 359.0 ms TR Peak Velocity 251.0 cm/s TR Peak Gradient 25.2 mmHg PV Peak Velocity 73.9 cm/s PV Peak Gradient 2.2 mmHg PV Mean Velocity 56.2 cm/s PV Mean Gradient 1.0 mmHg PV Velocity Time Integral 16.2 cm LV E' Lateral Velocity 6.9 cm/s Mitral E to LV E' Lateral Ratio 5.8 LV E' Septal Velocity 6.0 cm/s Mitral E to LV E' Septal Ratio 6.6
[2016-09-20 00:05] VITALS: BP 96/58
--- NOTE | 2016-09-20 07:23 | PN- Housestaff ---
Subjective Follow-up For: Episodes of diaphoresis, dizziness and shortness of breath Tele-Events Since Last Visit: Single pacing Sinus bradycardia HR 49-52 Triplet at 5:45 AM Subjective: No acute events overnight. Patient seen and examined this morning. He reports that he had two episodes of diaphoresis overnight, around 11:30 PM and 2 AM. Currently, he feels well and has no complaints. He is eager to be discharged. Review of Systems Constitutional: Reports: see HPI. Objective Last 24 Hrs of Vital Signs/I&O Vital Signs Date Time Temp Pulse Resp B/P Pulse O2 O2 Flow FiO2 Ox Delivery Rate 09/20 1558 98.9 69 18 120/82 96 Room Air 09/20 0839 79 136/72 09/20 0747 97.8 67 16 140/65 96 Room Air 09/20 0005 98.6 55 20 96/58 95 Room Air 09/19 2220 69 124/76 Intake & Output 09/20 1600 09/20 0800 09/20 0000 Intake Total 0 600 Output Total 300 Balance -300 600 Intake, IV 0 Intake, Oral 0 600 Number 0 Bowel Movements Output, Urine 300 Physical Exam General Appearance: Alert, Oriented X3, No Acute Distress HEENT: Atraumatic, Mucous Membr. moist/pink Neck: Supple Cardiovascular: Regular Rate, Normal S1, Normal S2, No Murmurs, Gallops, Rubs Lungs: Clear to Auscultation Abdomen: Soft, No Tenderness, Positive Bowel Sounds Extremities: No Clubbing, No Cyanosis, No Edema Current Medications: Current Medications Sig/Shi Start time Last Medication Dose Route Stop Time Status Admin Aspirin Buffered 81 MG DAILY 09/19 999 AC 09/20 PO 0839 Atorvastatin Calcium 20 MG DAILY 09/19 1000 AC 09/20 PO 0841 Carvedilol 3.125 MG BID 09/18 2199 AC 09/20 PO 0839 Enoxaparin Sodium 40 MG DAILY 09/18 1711 AC SC Ibuprofen 400 MG TID 09/18 2199 AC 09/20 PO 1556 Magnesium Oxide 400 MG DAILY 09/19 999 AC 09/20 PO 0839 Sotalol HCl 80 MG BID 09/18 2199 AC 09/20 PO 0839 Assessment/Plan Assessment: 66 y/o M with PMHx of HTN, HLD and tachybrady syndrome s/p pacemaker who presents with episodes of diaphoresis, dizziness and shortness of breath, felt to represent near syncope. #Near syncope: Multiple episodes of PACs, PVCs and couplets and triplets throughout current hospitalization. Unclear if episodes of diaphoresis, dizziness and shortness of breath correspond to episodes of arrhythmia. Two reported episodes of diaphoresis overnight. * Dr. Hernandez was contacted who said that he will not be able to come and see patient while in house. * Await pacemaker interrogation. * [employer] Supervisor Dr. Ibarra consulted. Appreciate his recs. * Patient can be discharged today if cleared by Dr. Ibarra. Diet: Heart Healthy DVT PPx: Lovenox and ALPs CODE: FULL Problem List: 1. Near syncope 2. History of permanent cardiac pacemaker placement 3. Tachy-song syndrome Pain Ratin Pain Location: N/A Pain Goal: Remain pain free Pain Plan: Motrin Tomorrow's Labs & Rationales: None Discharge Plan Discharge Disposition: home Stable for Discharge? Yes Anticipated Discharge (Day): today
[2016-09-20 07:47] VITALS: BP 140/65
--- NOTE | 2016-09-20 08:16 | PN- Student ---
ANA TARIQ 09/20/16 0801: Subjective Subjective: Medical Student Daily Progress Note: Mr. Coreas is a 66yo M who was admitted on 09/18/16 for episodic diaphoresis and near syncope. His PMH is significant for bradycardia s/p pacemaker implantation, syncope (last in 2014), HTN, HLD, diverticulosis, internal hemorrhoids, and arthritis. Since being admitted he has not had any sensation of near syncope, but does complain of two episodes of diaphoresis overnight, at approximately 2330 and 0230. He did not experience any SOB at that time. He does not complain of any pain, discomfort, new headache, or GI distress. There were noted episodes of sinus bradycardia on telemetry overnight, the lowest being 49 bpm. He had a triplet at 0532 this am. Objective Objective: Physical Exam: Vitals: * Temp: * HR: * RR: * SpO2: * BP: General: comfortable, eating breakfast Neuro: BUE tremor, L>R CV: S1,S2, RRR. Nearly 100% pacing per process tech, occasional PVCs Pulmonary: CTA, symmetrical expansion Abdomen: Soft, non tender. Bowel sounds present and normoactive Results Results: Laboratory Tests 09/19/16 0100: Troponin I < 0.01 09/18/16 1800: Troponin I < 0.01 09/19/16: Echo: mild-moderate concentric left ventricle hypertrophy, mild-moderate decrease in global left ventricle systolic function, mild - moderate decrease in EF (35-40%) , stage 1 diastolic dysfunction, mildly thickened mitral valve with trace regurgitation, mild aortic sclerosis, no evidence of pulmonary hypertension Assessment/Plan Assessment: Mr. Coreas is a 66 yo M who presented two days ago with episodic diaphoresis and near syncope. He has not had any full episodes since admission. His Echo showed some systolic dysfunction and diastolic dysfunction, left ventricular hypertrophy. Problem list: Episodic diaphoresis and near syncope Plan: Episodic Diaphoresis and Near Syncope: * Appears to be resolving * Will interrogate pacemaker * continue telemetry monitoring for now * consider Holter monitor upon discharge
--- NOTE | 2016-09-20 08:36 | Patient Discharge Instructions ---
Discharge Instructions General Discharge Information You were seen/treated for: Near syncope Watch for these problems: Fainting Chest pain Heart palpitations Difficulty breathing Sudden headache Special Instructions: Please follow up with your primary care physician Dr. Raleigh Maynard and leather cleaner Dr. Kirby Hernandez within one week of discharge. Diet Recommended Diet: Heart Healthy Activity Full Activity/No Limits: Yes Acute Coronary Syndrome Inclusion Criteria At DC or during hospital stay patient has or had the following: ACS DIAGNOSIS No Discharge Core Measures Meds if any: Prescribed or Continued at Discharge Meds if any: NOT Prescribed or Continued at Discharge Congestive Heart Failure Inclusion Criteria At DC or during hospital stay patient has or had the following: CHF DIAGNOSIS No Discharge Core Measures Meds if any: Prescribed or Continued at Discharge Meds if any: NOT Prescribed or Continued at Discharge Cerebrovascular accident Inclusion Criteria At DC or during hospital stay patient has or had the following: CVA/TIA Diagnosis No Discharge Core Measures Meds if any: Prescribed or Continued at Discharge Meds if any: NOT Prescribed or Continued at Discharge Venous thromboembolism Inclusion Criteria VTE Diagnosis No VTE Type NONE VTE Confirmed by (Test) NONE Discharge Core Measures - Per Current guidelines, there needs to be overlap - treatment for the first 5 days of Warfarin therapy. - If discharged on Warfarin prior to 5 days of - overlap therapy, the patient will need to be - assessed for post discharge needs including - *Post discharge parental anticoagulation - *Warfarin and/or parental anticoagulation education - *Follow up date to check INR post discharge At least 5 days overlap therapy as Inpatient No Meds if any: Prescribed or Continued at Discharge Note: Overlap Therapy is Warfarin and Anticoagulant Meds if any: NOT Prescribed or Continued at Discharge
--- NOTE | 2016-09-20 09:42 | PN- Att Addend ---
Attending Addendum Attending Brief Note Patient has no complaints on evaluation this morning. He has not had a repeat episode of sweating since being in the hospital. General Appearance: Alert, No Acute Distress Skin: Grossly normal HEENT: PEERLA Neck: Supple, No JVD Cardiovascular: Regular Rate, Normal S1, Normal S2, No Murmurs Lungs: Clear to Auscultation, Normal Air Movement Abdomen: Normal Bowel Sounds, Soft, No Tenderness Neurological: Normal Speech, Strength at 5/5 X4 Ext, Cranial Nerves 3-12 NL, Reflexes 2+ Extremities: No Clubbing, No Cyanosis, No Edema Vascular: Normal Pulses Assessment Triplets, PVCs and PACs on the telemetry without marked abnormal rhythms. We will get cardiac evaluation and possible pacemaker interrogation prior to his discharge to rule out cardiac causes of his sympathetic symptoms. Orthostatics negative. Plan Discuss with cardiology Continue other home meds DVT prophylaxis Current Medications Sig/Shi Start time Last Medication Dose Route Stop Time Status Admin Aspirin Buffered 81 MG DAILY 09/19 1000 AC 09/20 PO 0839 Atorvastatin Calcium 20 MG DAILY 09/19 1000 AC 09/20 PO 0841 Carvedilol 3.125 MG BID 09/18 2200 AC 09/20 PO 0839 Enoxaparin Sodium 40 MG DAILY 09/18 1711 AC SC Ibuprofen 400 MG TID 09/18 2200 AC 09/20 PO 0838 Magnesium Oxide 400 MG DAILY 09/19 1000 AC 09/20 PO 0839 Sotalol HCl 80 MG BID 09/18 2200 AC 09/20 PO 0839 Vital Signs Date Time Temp Pulse Resp B/P Pulse O2 O2 Flow FiO2 Ox Delivery Rate 09/20 0839 79 136/72 09/20 0747 97.8 67 16 140/65 96 Room Air 09/20 0005 98.6 55 20 96/58 95 Room Air 09/19 2220 69 124/76 09/19 1556 97.7 73 20 124/82 96 Room Air
[2016-09-20 15:58] VITALS: BP 120/82
--- NOTE | 2016-09-20 19:05 | Cons- Cardiology ---
General Information and HPI Consulting Request Date of Consult: 09/20/16 Requested By: CHERELLE ODOM MD Reason for Consult: Near-syncope. Source of Information: patient, old records Exam Limitations: no limitations, poor historian History of Present Illness: Mr. Edward Giles is a 66-year-old male with a history of hypertension, dyslipidemia, s/p pathway ablation for AVNRT 1992, resting bradycardia, AV curt reentrant tachycardia s/p ablation and permanent pacemaker implantation 2001 with generator replacement 2009, who presented after a near syncopal episode on 09/18/2016. Mr. Giles states that Monday night (09/17/2016) into Monday morning (2016) he had numerous paroxysms of profuse diaphoresis and the need to void at least 5 times during this period of time. He went to a [employer] service at around 11 AM Monday morning and recalls standing, sitting, standing again and experiencing another episode of profound diaphoresis. He sat down and his commented that he looked "as white as a ghost". After a few moments he decided to go to the hallway to try and feel improved, but he felt worse. He did then go outside and felt "a little better", but was still mildly diaphoretic and pale. At this point he may be decision to seek medical attention and came to the ED. He denied any prodromal nausea, chest discomfort, palpitations, shortness of breath, etc. Orthostatic blood pressure checks were performed in the ED that revealed a systolic blood pressure drop of 10 mmHg from lying to standing and no significant change in the diastolic blood pressure or pulse. He recalls several syncopal episodes prior to him having his pacemaker implanted for "prophylaxis" against syncope and up until now had no further near syncope or any syncope. At that time his prodrome consisted of pain in his teeth and tingling fingers that would occur seconds before the syncope. Allergies/Medications Allergies: Coded Allergies: Penicillins (Intermediate, HIVES 04/08/16) codeine (Intermediate, HIVES 04/08/16) Home Med List: Aspirin (Ecotrin*) 81 MG TABLET.DR 1 TAB PO DAILY HEART/BLOOD (Reported) Atorvastatin Calcium 20 MG TABLET 1 TAB PO DAILY CHOLESTEROL (Reported) Carvedilol 3.125 MG TABLET 1 TAB PO BID HEART (Reported) Magnesium Oxide (Magnesium) 400 MG CAPSULE 1 CAP PO DAILY SUPPLEMENT ( Reported) Meloxicam 15 MG TABLET 1 TAB PO DAILY PAIN/INFLAMMATION (Reported) Sotalol HCl (Sotalol) 80 MG TABLET 1 TAB PO BID HEART (Reported) Review of Systems Review of Systems: A 14 point system review was obtained and was unremarkable, other than as above. 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/Reproductive: NONE Surgical History Surgical History: Pacemaker placement Psychosocial History Smoking Status: Unknown If Ever Smoked Exam & Diagnostic Data Vital Signs and I&O Vital Signs Date Time Temp Pulse Resp B/P Pulse O2 O2 Flow FiO2 Ox Delivery Rate 09/20 1558 98.9 69 18 120/82 96 Room Air 09/20 0839 79 136/72 09/20 0747 97.8 67 16 140/65 96 Room Air 09/20 0005 98.6 55 20 96/58 95 Room Air 09/19 2220 69 124/76 Intake & Output 09/20 1600 09/20 0800 09/20 0000 09/19 1600 09/19 0800 09/19 0000 Intake Total 0 600 0 450 Output Total 300 Balance -300 600 0 450 Intake, IV 0 0 0 Intake, Oral 0 600 0 450 Number 0 0 0 Bowel Movements Output, Urine 300 Patient 202 lb Weight Physical Exam: Well-developed, well-nourished male in no acute distress. Vital signs: See above. HEENT: Normocephalic, atraumatic, EOMI, moist mucous membranes. Neck: No JVD, no bruits. Lungs: Clear to auscultation bilaterally. Heart: S1, S2 with no murmur, gallop, or rub appreciated. PMI fifth ICS at [facility]. Abdomen: Soft, nontender, positive bowel sounds. Extremities: No edema. Labs/Alexys Results: Laboratory Tests 09/19 09/18 0100 1930 Chemistry Troponin I (<0.11 ng/ml) < 0.01 Urines Urine Color (YEL,AMB,STR) YEL Urine Clarity (CLEAR) CLEAR Urine pH (5.0 - 8.0) 6.0 Ur Specific Steele (1.001 - 1.035) 1.025 Urine Protein (NEG,<30 MG/DL) NEG Urine Ketones (NEG) NEG Urine Nitrite (NEG) NEG Urine Bilirubin (NEG) NEG Urine Urobilinogen (0.1 - 1.0 EU/dl) 0.2 Ur Leukocyte Esterase (NEG) NEG Ur Microscopic EXAM NOT REQUIRED Urine Hemoglobin (NEG) NEG Urine Glucose (N MG/DL) NEG Diagnostic Data EKG Results (09/19/2016) sinus rhythm, borderline first-degree AV block, multiple PVCs, LAFB , nonspecific low amplitude T waves in the anterolateral leads. More ectopy when compared to prior tracing (09/18/2016). CXR Results (09/18/2016) no acute cardiopulmonary disease. No significant change since 09/2015. Assessment/Plan Assessment/Plan 66-y-o male with a hx of HTN, HLD, s/p pathway ablation for AVNRT 1992, resting bradycardia, AV curt reentrant tachycardia s/p ablation and ppm imlantation 2001 with generator replacement 2009, who presented after a near syncopal episode on 09/18/2016. He overall feels improved, but remains concerned about her presenting symptoms. We had his [employer]onic dual-chamber device interrogated today and it was found to be working properly with acceptable battery status, voltage, curtains, impedance , atrial and ventricular pacing thresholds, and atrial sensing threshold with an estimated remaining longevity of 5.5 years (range 4-7 years) based on past history. On monitoring he has also had evidence of a properly functioning pacemaker and occasional ventricular ectopy with the most complex form being one triplet. The etiology for his near syncope remains unclear, however, there is clearly no evidence of any malignant/ventricularly malignant dysrhythmias or evidence of pacemaker malfunction. His description of the episodes does have some elements that suggest a possible vasovagal phenomenon and his blood work suggests he may have been a little intravascularly depleted (increased BUN/creatinine, borderline positive orthostatic blood pressure check). Fortunately, he is over 1 liter positive since admission. An echocardiogram was also performed (09/19/2016) that revealed mildly to moderately abnormal left ventricular function with an estimated EF of 35-40%, but this was similar to his previous echocardiogram performed (04/19/2016) and slightly improved from his original echocardiogram performed here (04/07/2015) where the EF was estimated at between 30-35%. One concern was the right frontal headache he described. On closer questioning he states that he has had several of these recently and a few since his admission. It might be reasonable checking a CT of his head prior to discharge. Would otherwise, recommend further outpatient evaluation and management with his field operations manager (Kristian Hernandez M.D.). Thank you. Consult Acknowledgment - Thank you for your consult request.
--- NOTE | 2016-09-20 21:56 | CT SCAN REPORT ---
EXAMINATION: CT HEAD WITHOUT CONTRAST CLINICAL INFORMATION: Rule out intracranial pathology. Headache. COMPARISON: None TECHNIQUE: Contiguous axial imaging was performed from the skull base to vertex without intravenous administration of contrast. DLP: 529.16 mGy-cm FINDINGS: There is no evidence of acute intracranial hemorrhage or territorial infarction. No abnormal mass effect or midline shift is seen. Choi to white matter differentiation is well preserved. No extra-axial fluid collections are identified. The ventricles are normal in size. There is no abnormal attenuation within the brain parenchyma. The osseous structures and soft tissues are normal. The mastoid air cells and visualized portions of the paranasal sinuses are well aerated. IMPRESSION: No acute intracranial pathology.
[2016-09-21 00:20] VITALS: BP 114/70
--- NOTE | 2016-09-21 07:14 | PN- Housestaff ---
Subjective Follow-up For: Near syncope Ventricular ectopy Tele-Events Since Last Visit: Single pacing HR 49-50 No events Subjective: No acute events overnight. Patient seen and examined this morning. He feels well and has no complaints. He has not had any further episodes of diaphoresis overnight. Patient was seen by Dr. Ibarra yesterday evening who recommended checking a CT Head before discharge in view of his right frontal headache, which came back normal. Review of Systems Constitutional: Reports: no symptoms. Objective Last 24 Hrs of Vital Signs/I&O Vital Signs Date Time Temp Pulse Resp B/P Pulse O2 O2 Flow FiO2 Ox Delivery Rate 09/21 0020 98.3 53 20 114/70 93 Room Air 09/20 2103 70 136/80 09/20 1558 98.9 69 18 120/82 96 Room Air 09/20 0839 79 136/72 09/20 0747 97.8 67 16 140/65 96 Room Air Intake & Output 09/21 0800 09/21 0000 09/20 1600 Intake Total 240 340 Output Total Balance 240 340 Intake, IV 100 Intake, Oral 240 240 Physical Exam General Appearance: Alert, Oriented X3, No Acute Distress HEENT: Atraumatic, Mucous Membr. moist/pink Neck: Supple Cardiovascular: Regular Rate, Normal S1, Normal S2, No Murmurs, Gallops, Rubs Lungs: Clear to Auscultation Abdomen: Soft, No Tenderness, Positive Bowel Sounds Extremities: No Clubbing, No Cyanosis, No Edema Current Medications: Current Medications Sig/Sih Start time Last Medication Dose Route Stop Time Status Admin Acetaminophen 1,000 MG ONCE ONE 09/20 1814 DC 09/20 IV 09/20 181 1950 Aspirin Buffered 81 MG DAILY 09/19 1000 AC 09/20 PO 0839 Atorvastatin Calcium 20 MG DAILY 09/19 1000 AC 09/20 PO 0841 Carvedilol 3.125 MG BID 09/18 2199 AC 09/20 PO 210 Enoxaparin Sodium 40 MG DAILY 09/18 1711 AC SC Ibuprofen 400 MG TID 09/18 2199 AC 09/20 PO 210 Magnesium Oxide 400 MG DAILY 09/19 1000 AC 09/20 PO 0839 Sotalol HCl 80 MG BID 09/18 2199 AC 09/20 PO 210 Orders Miscellaneous Findings: CT HEAD: No acute intracranial pathology. Assessment/Plan Assessment: 66 y/o M with PMHx of HTN, HLD and tachybrady syndrome s/p pacemaker who presents with episodes of diaphoresis, dizziness and shortness of breath, felt to represent near syncope. #Near syncope: Occasional episodes of ventricular ectopy during current hospitalization. Pacemaker interrogation yesterday showed a properly functioning pacemaker with no evidence of malignant dysrhythmias. Etiology for these episodes are unclear with potential etiologies including vasovagal phenomenon suggested by his description of the episodes as well as intravascular depletion given increased BUN/Cr ratio and borderline positive orthostatics. * Discharge home today with instructions to follow up with Dr. Hernandez for further outpatient evaluation and management. #Right frontal headache: CT Head negative. * NTD. Diet: Heart Healthy DVT PPx: Lovenox and ALPs CODE: FULL Problem List: 1. Near syncope 2. History of permanent cardiac pacemaker placement 3. Ventricular ectopy 4. Frontal headache Pain Ratin Pain Location: N/A Pain Goal: Remain pain free Pain Plan: Motrin Tomorrow's Labs & Rationales: None Discharge Plan Discharge Disposition: home Stable for Discharge? Yes Anticipated Discharge (Day): today
== END 2016-09-21 08:10 ==
LOC: ENRESERVTM → ENRESERVDT → ERH 11:52 → 1NO 14:46 → ERHI 14:46 → ENPENDDIS 14:46 → 1NO 16:42
PROVIDERS: Emergency Medicine; ADMIT Internal Medicine
DX: R55 Syncope and collapse (principal); I10 Essential (primary) hypertension; R25.1 Tremor, unspecified; E78.5 Hyperlipidemia, unspecified; Z95.0 Presence of cardiac pacemaker; I49.3 Ventricular premature depolarization; R51 Headache
CPT/HCPCS: 81003; 93005; 93010; 93306; 96374; 96376; G0378; J0131; J1650; J7040